=== PATIENT | male | born 1995 | race Caucasian/White ===

== ENCOUNTER 2021-09-25 10:54 | Outpatient (CLI) | payer SELFPAY ==
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
== END 2021-09-25 23:59 | disposition home or self-care (01) ==
LOC: DI.N 10:54
PROVIDERS: ATTEND Family Medicine
DX: R07.81 Pleurodynia (principal)